=== PATIENT | female | born 1955 | race African-American/Black ===

== ENCOUNTER 2018-07-03 00:25 | Inpatient (IN) | payer OTHER ==
[2018-07-03] VITALS (27 sets, daily range): BP systolic 92–174; BP diastolic 47–88
[~2018-07-03] VITALS: Ht 175.3 cm; Wt 62.7 kg
[2018-07-03] MEDS ORDERED: DIPHENHYDRAMINE 50MG/ML VIAL IV STA (00:33)
[2018-07-03] MEDS ORDERED: SODIUM CHLORIDE 0.9% 1,000 ML IV ONE (00:45)
[2018-07-03] MEDS ORDERED: LABETALOL 5MG/ML SYR 20 MG/4 ML SYRINGE IV ONE (00:45)
[2018-07-03] MEDS ORDERED: LABETALOL HCL 20MG/4ML CARPUJECT IV ONE (01:30)
[2018-07-03 01:31] LABS: BASOPHILS % 0.6 % (0.0-2.0); EOSINOPHILS % 0.7 % (0.0-5.0); HEMATOCRIT. 45.3 % (36.0-48.0); HEMOGLOBIN. 15.2 g/dL (12.0-16.0); LYMPHOCYTES % 23.9 % (20.0-50.0); MEAN CORPUSCULAR HEMOGLOBIN 30.2 pg (28.0-32.0); MEAN CORPUSCULAR VOLUME 89.8 fL (81.0-99.0); MEAN PLATELET VOLUME 8.7 fl (7.4-10.4); MONOCYTES % 8.1 % (2.0-8.0); NEUTROPHILS % 66.7 % (40.0-76.0); PLATELET 295 x1000/uL (130-400); RED BLOOD CELL COUNT 5.05 mill/uL (4.2-5.4); RED CELL DISTRIBUTION WIDTH 14.7 % (11.6-14.6)
[2018-07-03 01:32] LABS: CLARITY URINE CLEAR (CLEAR); COLOR URINE YELLOW (YELLOW); KETONES URINE NEGATIVE (NEGATIVE); LEUKOCYTE ESTERASE URINE NEGATIVE (NEGATIVE); NITRITE URINE NEGATIVE (NEGATIVE); OCCULT BLOOD URINE TRACE (NEGATIVE); PH URINE 7.5 (4.5-8.0); PROTEIN URINE 2+ (NEGATIVE); UROBILINOGEN URINE 0.2 E.U./dL (0.2-1.0)
[2018-07-03] MEDS ORDERED: LABETALOL 5MG/ML SYR 20 MG/4 ML SYRINGE IV SCH (01:35)
[2018-07-03 01:41] LABS: PARTIAL THROMBOPLASTIN TIME 24.7 sec (23.4-31.0); PROTHROMBIN TIME 10.2 sec (9.4-11.6)
[2018-07-03] MEDS ORDERED: DILTIAZEM HCL 5MG/ML 5ML VIAL IV ONE ×2 (01:45→02:15)
[2018-07-03 01:49] LABS: AMMONIA 24 uMol/L (<32)
[2018-07-03 02:05] LABS: CHLORIDE 95 mEq/L (98-107)
[2018-07-03 02:11] LABS: ETHANOL BLOOD < 10 mg/dL
[2018-07-03 02:14] LABS: BETA HYDROXYBUTYRATE 0.8 mMol/L (0.0-0.3)
[2018-07-03 02:15] LABS: CREATINE KINASE 165 IU/L (26-192)
[2018-07-03] MEDS ORDERED: CLONIDINE 0.3MG TABLET PO ONE (03:00)
[2018-07-03] MEDS ORDERED: PROPOFOL 10MG/ML 100ML 100 ML IV SCH (04:00)
[2018-07-03] MEDS ORDERED: HYDRALAZINE 20MG/ML VIAL IV ONE (04:45)
[2018-07-03] MEDS ORDERED: PROPOFOL 10MG/ML 100ML 100 ML IV ONE (04:57)
[2018-07-03 05:23] LABS: BG BASE EXCESS 2.8 mmol/L (-2.0-2.0); BG CARBOXYHEMOGLOBIN 0.1 % (0.5-1.5); BG DEOXYHEMOGLOBIN 0.5 % (0.0-5.0); BG FRACTION INSPIRED OXYGEN 100; BG HCO3 ACT 26.7 mmol/L (22.0-26.0); BG METHEMOGLOBIN 0.4 % (0.0-1.5); BG OXYGEN SATURATION 99.5 % (92.0-98.5); BG PCO2 38.8 mmHg (35.0-45.0); BG PH 7.456 (7.350-7.450); BG PO2 438.4 mmHg (75.0-100.0); BG SAMPLE SITE RIGHT BRACHIAL; BG TIDAL VOLUME(mL) 500 mL; BG TOTAL HEMOGLOBIN 14.9 g/dL (12.0-18.0); BG VENT MODE VENT - A/C; BG VENT RATE 12 set
[2018-07-03] MEDS ORDERED: ASPIRIN 325MG TABLET PO SCH (05:46)
[2018-07-03] MEDS ORDERED: INSULIN LISPRO 100 UNITS/ML SUBCUT SCH ×2 (05:46→13:20)
[2018-07-03] MEDS ORDERED: FENTANYL CITRATE/PF 500 MCG in SODIUM CHLORIDE 0.9% 40 ML IV STA ×2 (06:06→06:16)
[2018-07-03] MEDS: KCL 20MEQ/100ML PREMIX 100 ML IV SCH ×2 (06:17→08:00)
[2018-07-03] MEDS ORDERED: IOHEXOL-350 100 ML BOTTLE ONE (06:53)
[2018-07-03 07:02] LABS: *AMPHETAMINES SCREEN URINE NEGATIVE (NEGATIVE); *BARBITURATES SCREEN URINE NEGATIVE (NEGATIVE); *BENZODIAZEPINES SCREEN URINE NEGATIVE (NEGATIVE); *COCAINE SCREEN URINE NEGATIVE (NEGATIVE)
[2018-07-03 07:03] LABS: CANNABINOID URINE SCREEN NEGATIVE (NEGATIVE); METHADONE URINE SCREEN NEGATIVE (NEGATIVE); OPIATES URINE SCREEN NEGATIVE (NEGATIVE); PHENCYCLIDINE URINE SCREEN NEGATIVE (NEGATIVE)
[2018-07-03] MEDS ORDERED: MAGNESIUM/ALUMINUM HYDROXIDE/SIMETHICONE 30ML UDC PO PRN (08:45)
[2018-07-03] MEDS ORDERED: DEXTROSE 50% WATER 50ML SYRINGE IV PRN ×3 (08:45→11:45)
[2018-07-03] MEDS ORDERED: DIPHENHYDRAMINE 50MG/ML VIAL IV PRN (08:45)
[2018-07-03] MEDS ORDERED: IPRATROPIUM/ALBUTEROL 0.5-3(2.5)MG/3ML NEB INH PRN (08:45)
[2018-07-03] MEDS ORDERED: NA PHOS,M-B/NA PHOS,DI-BA ENEMA 118ML PR PRN (08:45)
[2018-07-03] MEDS ORDERED: DOCUSATE SODIUM 100MG CAPSULE PO PRN (08:45)
[2018-07-03] MEDS ORDERED: ACETAMINOPHEN 325MG TABLET PO PRN (08:45)
[2018-07-03] MEDS ORDERED: SODIUM CHLORIDE 0.9% 1,000 ML IV SCH (09:30)
[2018-07-03] MEDS: FENTANYL CITRATE/PF 500 MCG in SODIUM CHLORIDE 0.9% 40 ML IV PRN ×2 (09:30→21:57)
[2018-07-03] MEDS ORDERED: NITROGLYCERIN 0.4MG TABLET SL SL PRN (09:30)
[2018-07-03] MEDS: PROPOFOL 10MG/ML 100ML 100 ML IV PRN ×3 (09:30→21:53)
[2018-07-03] MEDS ORDERED: ONDANSETRON 4MG ODT PO PRN (09:30)
[2018-07-03] MEDS: PANTOPRAZOLE SODIUM 40 MG/VIAL IV SCH (09:53)
[2018-07-03] MEDS: ENOXAPARIN 40MG/0.4ML SYR SUBCUT SCH (09:54)
[2018-07-03] MEDS ORDERED: INSULIN REGULAR (DRIP) 100 UNITS in SODIUM CHLORIDE 0.9% 100 ML IV SCH (10:00)
[2018-07-03] MEDS: BLOOD SUGAR DIAGNOSTIC STRIP TEST SCH ×6 (10:00→23:38)
[2018-07-03] MEDS: PIPERACILLIN/TAZ 3.375G PREMIX 50 ML IV SCH ×3 (10:54→23:31)
[2018-07-03] MEDS: ASPIRIN 325MG TABLET PO SCH (11:55)
[2018-07-03] MEDS ORDERED: BLOOD SUGAR DIAGNOSTIC STRIP TEST SCH (12:50)
[2018-07-03] MEDS ORDERED: KCL 20MEQ/100ML PREMIX 100 ML IV NR (13:00)
[2018-07-03] MEDS: LEVETIRACETAM 500 MG in SODIUM CHLORIDE 0.9% 100 ML IV SCH ×2 (13:03→21:16)
[2018-07-03 13:36] LABS: CHLORIDE 107 mEq/L (98-107)
[2018-07-03 13:43] LABS: PHOSPHORUS 1.5 mg/dL (2.5-4.9)
[2018-07-03 13:44] LABS: HDL CHOLESTEROL 86 mg/dL (40-59); LDL CHOLESTEROL 147 mg/dL (5-100)
[2018-07-03 13:46] LABS: CREATINE KINASE 123 IU/L (26-192)
[2018-07-03 13:49] LABS: CREATINE KINASE MB FRACTION 1.9 ng/mL (0.5-3.6)
[2018-07-03 13:51] LABS: AMMONIA 51 uMol/L (<32)
[2018-07-03] MEDS: INSULIN GLARGINE UD 100 UNITS/ML SYR SUBCUT SCH (13:51)
[2018-07-03] MEDS ORDERED: IPRATROPIUM/ALBUTEROL 0.5-3(2.5)MG/3ML NEB HHN PRN (14:30)
[2018-07-03] MEDS ORDERED: ETOMIDATE 2MG/ML 10ML VIAL IV ONE ×2 (14:47→14:49)
[2018-07-03] MEDS ORDERED: SUCCINYLCHOLINE CHLORIDE 200MG/10ML VIAL IV ONE (14:47)
[2018-07-03] MEDS: LACTULOSE 20G/30ML UDC PO SCH ×2 (14:57→21:17)
[2018-07-03] MEDS ORDERED: POTASSIUM PHOS,M-BASIC-D-BASIC 30 MMOL in DEXT 5% WATER 500 ML IV NR (15:30)
[2018-07-03] MEDS: IPRATROPIUM/ALBUTEROL 0.5-3(2.5)MG/3ML NEB HHN SCH ×2 (16:58→20:35)
[2018-07-03] MEDS: DEXT 5%/0.9% NACL 1,000 ML IV SCH (17:20)
[2018-07-03] MEDS: INSULIN LISPRO 100 UNITS/ML SUBCUT SCH ×2 (17:34→23:46)
[2018-07-03] MEDS: CLONIDINE 0.1MG TABLET PO PRN (17:42)
[2018-07-03] MEDS ORDERED: SODIUM CHLORIDE 0.9% 500 ML IV NR (21:05)
[2018-07-03] MEDS: ATORVASTATIN CALCIUM 40MG TABLET PO SCH (21:17)
[2018-07-03] MEDS ORDERED: FENTANYL CITRATE/PF 1,000 MCG in SODIUM CHLORIDE 0.9% 80 ML IV PRN (21:30)
[2018-07-03 22:57] LABS: CREATINE KINASE MB FRACTION 4.6 ng/mL (0.5-3.6)
[2018-07-04] VITALS (28 sets, daily range): BP systolic 120–172; BP diastolic 62–86
[2018-07-04] MEDS: IPRATROPIUM/ALBUTEROL 0.5-3(2.5)MG/3ML NEB HHN SCH ×7 (00:42→23:38)
[2018-07-04] MEDS: DEXT 5%/0.9% NACL 1,000 ML IV SCH ×2 (03:38→12:29)
[2018-07-04] MEDS: LACTULOSE 20G/30ML UDC PO SCH ×3 (05:30→21:00)
[2018-07-04] MEDS: PIPERACILLIN/TAZ 3.375G PREMIX 50 ML IV SCH ×3 (05:30→21:00)
[2018-07-04] MEDS: BLOOD SUGAR DIAGNOSTIC STRIP TEST SCH ×3 (05:31→18:00)
[2018-07-04] MEDS: CLONIDINE 0.1MG TABLET PO PRN ×2 (05:42→18:28)
[2018-07-04] MEDS: INSULIN LISPRO 100 UNITS/ML SUBCUT SCH ×3 (05:49→18:29)
[2018-07-04 05:55] LABS: BASOPHILS % 0.6 % (0.0-2.0); EOSINOPHILS % 0.9 % (0.0-5.0); HEMATOCRIT. 41.1 % (36.0-48.0); HEMOGLOBIN. 13.8 g/dL (12.0-16.0); MEAN CORPUSCULAR HEMOGLOBIN 29.7 pg (28.0-32.0); MEAN CORPUSCULAR VOLUME 88.7 fL (81.0-99.0); MEAN PLATELET VOLUME 8.5 fl (7.4-10.4); MONOCYTES % 7.3 % (2.0-8.0); NEUTROPHILS % 69.2 % (40.0-76.0); PLATELET 247 x1000/uL (130-400); RED BLOOD CELL COUNT 4.64 mill/uL (4.2-5.4)
[2018-07-04 06:07] LABS: AMMONIA 42 uMol/L (<32)
[2018-07-04 07:15] LABS: BG BASE EXCESS -0.9 mmol/L (-2.0-2.0); BG CARBOXYHEMOGLOBIN 0.4 % (0.5-1.5); BG DEOXYHEMOGLOBIN 1.3 % (0.0-5.0); BG FRACTION INSPIRED OXYGEN 40; BG HCO3 ACT 23.3 mmol/L (22.0-26.0); BG METHEMOGLOBIN 0.2 % (0.0-1.5); BG OXYGEN SATURATION 98.7 % (92.0-98.5); BG OXYHEMOGLOBIN 98.1 % (94.0-97.0); BG PCO2 37.2 mmHg (35.0-45.0); BG PH 7.414 (7.350-7.450); BG PO2 135.8 mmHg (75.0-100.0); BG SAMPLE SITE RIGHT BRACHIAL; BG TIDAL VOLUME(mL) 500 mL; BG TOTAL HEMOGLOBIN 13.4 g/dL (12.0-18.0); BG VENT MODE VENT - A/C; BG VENT RATE 12 set
[2018-07-04] MEDS: ENOXAPARIN 40MG/0.4ML SYR SUBCUT SCH (09:54)
[2018-07-04] MEDS: PANTOPRAZOLE SODIUM 40 MG/VIAL IV SCH (09:54)
[2018-07-04] MEDS: ASPIRIN 325MG TABLET PO SCH (09:55)
[2018-07-04] MEDS: LEVETIRACETAM 500 MG in SODIUM CHLORIDE 0.9% 100 ML IV SCH ×2 (09:55→21:00)
[2018-07-04] MEDS: INSULIN GLARGINE UD 100 UNITS/ML SYR SUBCUT SCH (09:56)
[2018-07-04] MEDS ORDERED: SODIUM CHLORIDE 0.9% 1,000 ML IV NR (10:15)
[2018-07-04] MEDS ORDERED: POTASSIUM CHLORIDE 20MEQ/PACKET NG NR (10:30)
[2018-07-04] MEDS ORDERED: POTASSIUM CHLORIDE INJ 40 MEQ in DEXT 5% WATER 250 ML IV NR (11:30)
[2018-07-04] MEDS ORDERED: FUROSEMIDE 40MG/4ML VIAL IVP NR (13:45)
[2018-07-04] MEDS: PROPOFOL 10MG/ML 100ML 100 ML IV PRN ×2 (14:57→22:39)
[2018-07-04] MEDS: ATORVASTATIN CALCIUM 40MG TABLET PO SCH (21:00)
[2018-07-05] VITALS (33 sets, daily range): BP systolic 139–209; BP diastolic 62–133
[2018-07-05] MEDS: BLOOD SUGAR DIAGNOSTIC STRIP TEST SCH ×5 (00:06→20:36)
[2018-07-05] MEDS: IPRATROPIUM/ALBUTEROL 0.5-3(2.5)MG/3ML NEB HHN SCH ×9 (00:28→23:38)
[2018-07-05] MEDS: PIPERACILLIN/TAZ 3.375G PREMIX 50 ML IV SCH ×4 (03:15→19:41)
[2018-07-05 05:02] LABS: BASOPHILS % 0.4 % (0.0-2.0); EOSINOPHILS % 1.9 % (0.0-5.0); HEMATOCRIT. 42.7 % (36.0-48.0); HEMOGLOBIN. 13.9 g/dL (12.0-16.0); LYMPHOCYTES % 21.4 % (20.0-50.0); MEAN CORPUSCULAR HEMOGLOBIN 29.2 pg (28.0-32.0); MEAN CORPUSCULAR VOLUME 89.4 fL (81.0-99.0); MEAN PLATELET VOLUME 8.6 fl (7.4-10.4); MONOCYTES % 8.2 % (2.0-8.0); NEUTROPHILS % 68.1 % (40.0-76.0); PLATELET 266 x1000/uL (130-400); RED BLOOD CELL COUNT 4.78 mill/uL (4.2-5.4); RED CELL DISTRIBUTION WIDTH 15.1 % (11.6-14.6)
[2018-07-05 05:07] LABS: CHLORIDE 116 mEq/L (98-107)
[2018-07-05] MEDS: LACTULOSE 20G/30ML UDC PO SCH ×3 (05:29→21:01)
[2018-07-05] MEDS: INSULIN LISPRO 100 UNITS/ML SUBCUT SCH ×5 (05:30→20:36)
[2018-07-05] MEDS: LEVETIRACETAM 500 MG in SODIUM CHLORIDE 0.9% 100 ML IV SCH ×2 (08:21→21:00)
[2018-07-05] MEDS: PANTOPRAZOLE SODIUM 40 MG/VIAL IV SCH (08:21)
[2018-07-05] MEDS: ASPIRIN 325MG TABLET PO SCH (08:21)
[2018-07-05] MEDS: ENOXAPARIN 40MG/0.4ML SYR SUBCUT SCH (08:24)
[2018-07-05 08:33] LABS: BG BASE EXCESS -1.1 mmol/L (-2.0-2.0); BG CARBOXYHEMOGLOBIN 0.3 % (0.5-1.5); BG DEOXYHEMOGLOBIN 1.4 % (0.0-5.0); BG FRACTION INSPIRED OXYGEN 35; BG HCO3 ACT 23.4 mmol/L (22.0-26.0); BG METHEMOGLOBIN 0.3 % (0.0-1.5); BG OXYGEN SATURATION 98.6 % (92.0-98.5); BG PCO2 38.4 mmHg (35.0-45.0); BG PH 7.403 (7.350-7.450); BG PO2 131.7 mmHg (75.0-100.0); BG SAMPLE SITE LEFT RADIAL; BG TIDAL VOLUME(mL) 500 mL; BG TOTAL HEMOGLOBIN 13.1 g/dL (12.0-18.0); BG VENT MODE VENT - A/C; BG VENT RATE 12 set
[2018-07-05] MEDS: INSULIN GLARGINE UD 100 UNITS/ML SYR SUBCUT SCH (09:03)
[2018-07-05] MEDS: CLONIDINE 0.1MG TABLET PO PRN ×2 (09:03→15:34)
[2018-07-05] MEDS: LORAZEPAM 2MG/ML CPJ IV PRN ×2 (11:01→17:10)
[2018-07-05 11:56] LABS: BG BASE EXCESS -2.7 mmol/L (-2.0-2.0); BG CARBOXYHEMOGLOBIN 0.7 % (0.5-1.5); BG DEOXYHEMOGLOBIN 1.9 % (0.0-5.0); BG FRACTION INSPIRED OXYGEN 35; BG HCO3 ACT 22.1 mmol/L (22.0-26.0); BG METHEMOGLOBIN 0.5 % (0.0-1.5); BG OXYGEN SATURATION 98.1 % (92.0-98.5); BG OXYHEMOGLOBIN 96.9 % (94.0-97.0); BG PCO2 38.4 mmHg (35.0-45.0); BG PH 7.378 (7.350-7.450); BG PO2 106.5 mmHg (75.0-100.0); BG PRESSURE SUPPORT 8; BG SAMPLE SITE RIGHT RADIAL; BG TOTAL HEMOGLOBIN 13.9 g/dL (12.0-18.0); BG VENT MODE VENT - CPAP
[2018-07-05] MEDS ORDERED: NITROGLYCERIN 0.4MG TABLET SL SL PRN (15:30)
[2018-07-05] MEDS: NITROGLYCERIN 0.4MG/HR PATCH TOP SCH (15:45)
[2018-07-05] MEDS: AMLODIPINE 10MG TABLET PO SCH (17:19)
[2018-07-05] MEDS: HYDRALAZINE 20MG/ML VIAL IV PRN (18:08)
[2018-07-05] MEDS: METOPROLOL TARTRATE 25MG TABLET PO SCH (21:01)
[2018-07-05] MEDS: LISINOPRIL 20MG TABLET PO SCH (21:01)
[2018-07-05] MEDS: ATORVASTATIN CALCIUM 40MG TABLET PO SCH (21:01)
[2018-07-06] VITALS (28 sets, daily range): BP systolic 123–199; BP diastolic 35–102
[2018-07-06] MEDS: PIPERACILLIN/TAZ 3.375G PREMIX 50 ML IV SCH ×4 (01:17→19:29)
[2018-07-06] MEDS: LACTULOSE 20G/30ML UDC PO SCH ×3 (05:05→22:09)
[2018-07-06 07:25] LABS: BG CARBOXYHEMOGLOBIN 0.8 % (0.5-1.5); BG FRACTION INSPIRED OXYGEN 21; BG HCO3 ACT 25.7 mmol/L (22.0-26.0); BG METHEMOGLOBIN 0.3 % (0.0-1.5); BG OXYHEMOGLOBIN 94.9 % (94.0-97.0); BG PCO2 33.4 mmHg (35.0-45.0); BG PH 7.504 (7.350-7.450); BG PO2 72.8 mmHg (75.0-100.0); BG SAMPLE SITE LEFT RADIAL; BG TOTAL HEMOGLOBIN 13.9 g/dL (12.0-18.0); BG VENT MODE ROOM AIR
[2018-07-06] MEDS: BLOOD SUGAR DIAGNOSTIC STRIP TEST SCH ×4 (07:50→22:09)
[2018-07-06] MEDS: INSULIN LISPRO 100 UNITS/ML SUBCUT SCH ×4 (07:50→22:15)
[2018-07-06] MEDS: IPRATROPIUM/ALBUTEROL 0.5-3(2.5)MG/3ML NEB HHN SCH ×4 (08:24→20:13)
[2018-07-06] MEDS: ENOXAPARIN 40MG/0.4ML SYR SUBCUT SCH (09:14)
[2018-07-06] MEDS: METOPROLOL TARTRATE 25MG TABLET PO SCH ×2 (09:14→22:09)
[2018-07-06] MEDS: LISINOPRIL 20MG TABLET PO SCH ×2 (09:14→22:09)
[2018-07-06] MEDS: ASPIRIN 325MG TABLET PO SCH (09:15)
[2018-07-06] MEDS: PANTOPRAZOLE SODIUM 40 MG/VIAL IV SCH (09:15)
[2018-07-06] MEDS: NITROGLYCERIN 0.4MG/HR PATCH TOP SCH (09:15)
[2018-07-06] MEDS: AMLODIPINE 10MG TABLET PO SCH (09:15)
[2018-07-06] MEDS: LEVETIRACETAM 500 MG in SODIUM CHLORIDE 0.9% 100 ML IV SCH ×2 (10:59→22:09)
[2018-07-06] MEDS: INSULIN GLARGINE UD 100 UNITS/ML SYR SUBCUT SCH (10:59)
[2018-07-06] MEDS: HYDRALAZINE 20MG/ML VIAL IV PRN ×2 (11:12→19:30)
[2018-07-06] MEDS ORDERED: GLIP5TAB12 (11:56)
[2018-07-06] MEDS ORDERED: METF500T6 (11:56)
[2018-07-06 16:25] LABS: AMMONIA 34 uMol/L (<32)
[2018-07-06] MEDS: ATORVASTATIN CALCIUM 40MG TABLET PO SCH (22:09)
[2018-07-07] VITALS (9 sets, daily range): BP systolic 120–171; BP diastolic 60–89
[2018-07-07] MEDS: IPRATROPIUM/ALBUTEROL 0.5-3(2.5)MG/3ML NEB HHN SCH ×5 (00:30→16:22)
[2018-07-07] MEDS: PIPERACILLIN/TAZ 3.375G PREMIX 50 ML IV SCH ×3 (02:14→14:43)
[2018-07-07] MEDS: LACTULOSE 20G/30ML UDC PO SCH ×2 (05:42→14:43)
[2018-07-07] MEDS: BLOOD SUGAR DIAGNOSTIC STRIP TEST SCH ×3 (05:50→16:45)
[2018-07-07] MEDS: INSULIN LISPRO 100 UNITS/ML SUBCUT SCH ×3 (05:50→17:59)
[2018-07-07] MEDS: LISINOPRIL 20MG TABLET PO SCH (09:56)
[2018-07-07] MEDS: ASPIRIN 325MG TABLET PO SCH (09:56)
[2018-07-07] MEDS: AMLODIPINE 10MG TABLET PO SCH (09:56)
[2018-07-07] MEDS: METOPROLOL TARTRATE 25MG TABLET PO SCH (09:56)
[2018-07-07] MEDS: ENOXAPARIN 40MG/0.4ML SYR SUBCUT SCH (09:57)
[2018-07-07] MEDS: PANTOPRAZOLE SODIUM 40 MG/VIAL IV SCH (09:57)
[2018-07-07] MEDS: NITROGLYCERIN 0.4MG/HR PATCH TOP SCH (09:59)
[2018-07-07] MEDS: LEVETIRACETAM 500 MG in SODIUM CHLORIDE 0.9% 100 ML IV SCH (09:59)
[2018-07-07] MEDS: INSULIN GLARGINE UD 100 UNITS/ML SYR SUBCUT SCH (10:34)
[2018-07-07] MEDS ORDERED: FAMOTIDINE 20MG TABLET PO SCH (21:00)
== END 2018-07-07 19:00 | disposition short-term general hospital (02) | DRG 208 ==
LOC: ER 00:25 → CVICU 03:23 → ENRESERV 07:39 → 5WST 07-07 04:55
PROVIDERS: ADMIT Internal Medicine; ATTEND Internal Medicine
PROC: 5A1945Z Respiratory Ventilation, 24-96 Consecutive Hours (ICD-10-PCS; principal; 2018-07-03)
PROC: 0BH17EZ Insertion of Endotracheal Airway into Trachea, Via Natural or Artificial Opening (ICD-10-PCS; 2018-07-03)
DX: J96.00 Acute respiratory failure, unspecified whether with hypoxia or hypercapnia (principal); E87.1 Hypo-osmolality and hyponatremia; E44.1 Mild protein-calorie malnutrition; E72.20 Disorder of urea cycle metabolism, unspecified; E11.65 Type 2 diabetes mellitus with hyperglycemia; E87.6 Hypokalemia; I10 Essential (primary) hypertension; E83.39 Other disorders of phosphorus metabolism; L89.150 Pressure ulcer of sacral region, unstageable; R56.9 Unspecified convulsions; E78.5 Hyperlipidemia, unspecified; Z78.1 Physical restraint status; Z82.3 Family history of stroke; Z86.73 Personal history of transient ischemic attack (TIA), and cerebral infarction without residual deficits; Z68.20 Body mass index [BMI] 20.0-20.9, adult; Z87.891 Personal history of nicotine dependence; Z91.19 Patient's noncompliance with other medical treatment and regimen
CPT/HCPCS: 31500; 36415; 36600; 51702; 70450; 70496; 70551; 71045; 80048; 80053; 80061; 80305; 80307; 80329; 81003; 82010; 82140; 82375; 82550; 82553; 82805; 82962; 83036; 83605; 83690; 83735; 83880; 84100; 84443; 84478; 84484; 85025; 85610; 85730; 87040; 87070; 87077; 87186; 92610; 93005; 93306; 93970; 94002; 94003; 94640; 96361; 96365; 96367; 96375; 96376; 97116; 97162; 97166; 97530; 99291; 99292; A6261; C1893; C9113; G0482; J0330; J0360; J1200; J1650; J1815; J1940; J1953; J2060; J2543; J2704; J3010; J3480; J3490; J7030; J7040; J7042; J7050; J7060; J7620; Q9967